=== PATIENT | female | born 1975 | race Asian ===

== ENCOUNTER 2018-03-02 13:05 | Outpatient (CLI) | payer OTHER ==
--- NOTE | 2018-03-02 15:25 | MMO ---
BILATERAL SCREENING MAMMOGRAM: Date: 03/02/18 HISTORY: Screening. COMPARISON: Mammogram from 2013. TECHNIQUE: Bilateral screening CC and MLO mammograms. This patient's mammogram was interpreted with the assistance of computer-aided detection. FINDINGS: The breasts are heterogeneously dense, which may obscure small masses. Benign calcifications left breast, unchanged from 2013. IMPRESSION: BIRADS 2: Benign Finding(s) Continued annual mammographic screening is recommended. POS: [facility]
== END 2018-03-02 13:06 | disposition home or self-care (01) ==
LOC: SCSMAMMO 13:05
DX: Z12.31 Encounter for screening mammogram for malignant neoplasm of breast (principal)
CPT/HCPCS: 77067